=== PATIENT | female | born 1995 | race Caucasian/White ===

== ENCOUNTER 2017-10-17 15:21 | Emergency (ER) | payer OTHER ==
[2017-10-17] MEDS ORDERED: MECLIZINE HCL 25 MG TABLET PO ONE (15:51)
--- NOTE | 2017-10-17 15:57 | ER Document Report ---
ED Medical Screen (RME) - General Chief Complaint: General Weakness Stated Complaint: WEAKNESS/DIZZY Time Seen by Provider: 10/17/17 15:50 Mode of Arrival: Wheelchair Information source: Patient Notes: Pt is a 22 year old female who presents to the ER today for acute onset of dizziness like the room was spinning around her while she was at work prior to arrival. Pt admits to nausea and worsening if dizziness with turning of head and position. Denies ringing in ears. TRAVEL OUTSIDE OF THE [place] IN LAST 30 DAYS: No - Related Data Allergies/Adverse Reactions: hydromorphone HCl [From Dilaudid] Allergy (Verified 10/17/17 15:28) Past Medical History - General Information source: Patient Renal/ Medical History: Reports: Hx Kidney Stones Review of Systems - Review of Systems Gastrointestinal: See HPI Neurological/Psychological: See HPI Physical Exam - Vital signs Vitals: Temp Pulse Resp BP Pulse Ox 98.4 F 78 16 113/77 99 10/17/17 15:26 10/17/17 15:26 10/17/17 15:26 10/17/17 15:26 10/17/17 15:26 - Notes Notes: General: not wanting to move, in wheelchair, but in NAD Course - Vital Signs Vital signs: Temp Pulse Resp BP Pulse Ox 98.4 F 78 16 113/77 99 10/17/17 15:26 10/17/17 15:26 10/17/17 15:26 10/17/17 15:26 10/17/17 15:26 Doctor's Discharge - Discharge Referrals: JUAN JOSE GUEVARA DO [Primary Care Provider] - Follow up as needed
[2017-10-17 17:43] LABS: ABSOLUTE EOSINOPHILS # (AUTO) 0.1 10^3/uL (0.0-0.6); ABSOLUTE LYMPHOCYTES (AUTO) 2.7 10^3/uL (0.5-4.7); ABSOLUTE MONOCYTES (AUTO) 0.4 10^3/uL (0.1-1.4); ABSOLUTE NEUT (AUTO) 3.4 10^3/uL (1.7-8.2); BASOPHILS % (AUTO) 0.2 % (0-2); HEMATOCRIT 43.9 % (36.0-47.0); HEMOGLOBIN 14.9 g/dL (12.0-15.5); LYMPHOCYTES % (AUTO) 40.3 % (13-45); MEAN CORPUSCULAR HEMOGLOBIN 29.8 pg (27.0-33.4); MEAN CORPUSCULAR HGB CONC 33.9 g/dL (32.0-36.0); MEAN CORPUSCULAR VOLUME 88 fl (80-97); MONOCYTES % (AUTO) 6.7 % (3-13); PLATELET COUNT 256 10^3/uL (150-450); RED BLOOD COUNT 4.98 10^6/uL (3.72-5.28); RED CELL DISTRIBUTION WIDTH 12.3 % (11.5-14.0); SEGMENTED NEUTROPHILS % (AUTO) 50.8 % (42-78); TOTAL CELLS COUNTED % (AUTO) 100 %; WHITE BLOOD COUNT 6.7 10^3/uL (4.0-10.5)
[2017-10-17 17:50] LABS: APPEARANCE,URINE SLIGHTLY-CLOUDY; BILIRUBIN,URINE NEGATIVE (NEGATIVE); COLOR,URINE YELLOW; GLUCOSE, URINE NEGATIVE (NEGATIVE); KETONES,URINE NEGATIVE (NEGATIVE); LEUKOCYTE ESTERASE,URINE MODERATE (NEGATIVE); NITRITE,URINE NEGATIVE (NEGATIVE); PROTEIN,URINE NEGATIVE (NEGATIVE); URINE SPECIFIC GRAVITY 1.015; UROBILINOGEN,URINE NEGATIVE mg/dL (<2.0)
[2017-10-17 17:56] LABS: ALANINE AMINOTRANSFERASE 19 U/L (9-52); ALBUMIN 4.9 g/dL (3.5-5.0); ALKALINE PHOSPHATASE 43 U/L (38-126); ANION GAP 15 (5-19); ASPARTATE AMINO TRANSFERASE 15 U/L (14-36); BILIRUBIN,DIRECT 0.2 mg/dL (0.0-0.4); BILIRUBIN,TOTAL 0.2 mg/dL (0.2-1.3); BLOOD UREA NITROGEN 13 mg/dL (7-20); CALCIUM 9.9 mg/dL (8.4-10.2); CARBON DIOXIDE 26 mmol/L (22-30); CHLORIDE 104 mmol/L (98-107); GLUCOSE 101 mg/dL (75-110); POTASSIUM 4.5 mmol/L (3.6-5.0); SODIUM 144.6 mmol/L (137-145); TOTAL PROTEIN 7.5 g/dL (6.3-8.2)
--- NOTE | 2017-10-17 18:15 | ER Document Report ---
ED Dizziness/Weakness - General Chief Complaint: General Weakness Stated Complaint: WEAKNESS/DIZZY Time Seen by Provider: 10/17/17 15:50 Mode of Arrival: Wheelchair Information source: Patient Notes: Patient is a 22-year-old female who presents to the ER today for acute onset of dizziness, nausea that started approximately 2 hours prior to arrival while she was at work. Patient states that it feels like "the room is spinning." She has no headache or blurred vision with this, did not lose consciousness. Patient has not tried anything for her symptoms. She has not vomited. She denies any history of this. TRAVEL OUTSIDE OF THE [place] IN LAST 30 DAYS: No - Related Data Allergies/Adverse Reactions: hydromorphone HCl [From Dilaudid] Allergy (Verified 10/17/17 15:28) Past Medical History - General Information source: Patient - Social History Smoking Status: Never Smoker Chew tobacco use (# tins/day): No Frequency of alcohol use: None Drug Abuse: None Family History: Reviewed & Not Pertinent Patient has suicidal ideation: No Patient has homicidal ideation: No Renal/ Medical History: Reports: Hx Kidney Stones. Denies: Hx Peritoneal Dialysis Review of Systems - Review of Systems Constitutional: No symptoms reported EENT: No symptoms reported Cardiovascular: No symptoms reported Respiratory: No symptoms reported Gastrointestinal: No symptoms reported Genitourinary: No symptoms reported Female Genitourinary: No symptoms reported Musculoskeletal: No symptoms reported Skin: No symptoms reported Hematologic/Lymphatic: No symptoms reported Neurological/Psychological: See HPI Physical Exam - Vital signs Vitals: Temp Pulse Resp BP Pulse Ox 98.4 F 78 16 113/77 99 10/17/17 15:26 10/17/17 15:26 10/17/17 15:26 10/17/17 15:26 10/17/17 15:26 - Notes Notes: PHYSICAL EXAMINATION: GENERAL: Uncomfortable appearing, lying very still in a wheelchair, in no acute distress. HEAD: Atraumatic, normocephalic. EYES: left nystagmus, Pupils equal round and reactive to light, extraocular movements intact, sclera anicteric, conjunctiva are normal. ENT: ear canals without erythema or foreign body, TMs pearly hannah with good bony landmarks, nares patent, oropharynx clear without exudates. Moist mucous membranes. NECK: Normal range of motion, supple without lymphadenopathy LUNGS: CTAB and equal. No wheezes rales or rhonchi. HEART: Regular rate and rhythm without murmurs ABDOMEN: Soft, suprapubic tenderness. No guarding, no rebound BACK: no vertebral tenderness, normal ROM GI/: no CVA tenderness EXTREMITIES: Normal range of motion, no pitting edema. No cyanosis. NEUROLOGICAL: Cranial nerves grossly intact. Normal sensory/motor exams. PSYCH: Normal mood, normal affect. SKIN: Warm, Dry, normal turgor, no rashes or lesions noted Course - Re-evaluation Re-evalutation: 10/17/17 18:42 Lab work is unremarkable today except for some bacteria and leukocytes on urinalysis today and patient is complaining after physical exam of some suprapubic discomfort. Patient now states that she has been urinating more frequently and that has been dark in color but she denies that she has had any burning with urination or flank pain. She denies any fevers or chills. She feels better from dizziness after meclizine. 10/17/17 18:44 - Vital Signs Vital signs: Temp Pulse Resp BP Pulse Ox 98.7 F 68 18 108/69 100 10/17/17 18:23 10/17/17 18:23 10/17/17 18:23 10/17/17 18:23 10/17/17 18:23 - Laboratory Result Diagrams: 10/17/17 17:05 10/17/17 17:05 Laboratory results interpreted by me: 10/17/17 17:05 Ur Leukocyte Esterase MODERATE H Discharge - Discharge Clinical Impression: Vertigo UTI (urinary tract infection) Qualifiers: Urinary tract infection type: site unspecified Hematuria presence: without hematuria Qualified Code(s): N39.0 - Urinary tract infection, site not specified Condition: Stable Disposition: HOME, SELF-CARE Instructions: Urinary Tract Infection ([facility]) Additional Instructions: Return immediately for any new or worsening symptoms. Follow up with primary care provider, call tomorrow to make followup appointment. Prescriptions: Cephalexin Monohydrate [Keflex 500 mg Capsule] 500 mg PO BID 7 Days #14 capsule Fluticasone Propionate [Flonase Nasal Felch 50 Mcg/Felch 16 gm] 1 spray NASL Q12 #1 inhaler Meclizine HCl 25 mg PO TID #30 tablet Forms: Return to Work Referrals: JUAN JOSE GUEVARA DO [NO LOCAL MD] - Follow up as needed
[2017-10-17 18:27] VITALS: BP 108/69
== END 2017-10-17 18:27 | disposition home or self-care (01) ==
LOC: ER 15:21
DX: N39.0 Urinary tract infection, site not specified (principal); R42 Dizziness and giddiness; R53.1 Weakness; R11.0 Nausea; H55.00 Unspecified nystagmus
CPT/HCPCS: 36415; 80053; 81001; 81025; 85025; 99285

== ENCOUNTER 2017-10-19 10:57 | Emergency (ER) | payer OTHER ==
--- NOTE | 2017-10-19 12:32 | ER Document Report ---
ED General - General Chief Complaint: Dizziness Stated Complaint: DIZZINESS Time Seen by Provider: 10/19/17 11:52 Notes: The patient is a 22-year-old female who presents with feeling like the room is spinning for the past several days. She is also feeling numbness in both of her hands. She was seen in the ER 4 days ago and diagnosed with vertigo and a UTI. She is taking her meclizine and Macrobid, but feels like the meclizine is making her vertiginous symptoms worse. She is also having a mild dull frontal headache. Patient denies syncope, chest pain, shortness of breath, nausea, vomiting, ataxia, neck stiffness, fevers, focal weakness or back pain. TRAVEL OUTSIDE OF THE [place] IN LAST 30 DAYS: No - Related Data Allergies/Adverse Reactions: hydromorphone HCl [From Dilaudid] Allergy (Verified 10/17/17 15:28) Past Medical History - General Information source: Patient - Social History Smoking Status: Never Smoker Chew tobacco use (# tins/day): No Frequency of alcohol use: None Drug Abuse: None Family History: Reviewed & Not Pertinent Patient has suicidal ideation: No Patient has homicidal ideation: No Renal/ Medical History: Reports: Hx Kidney Stones. Denies: Hx Peritoneal Dialysis Review of Systems - Review of Systems Notes: REVIEW OF SYSTEMS: CONSTITUTIONAL: -fevers, -chills EENT: -eye pain, -difficulty swallowing, -nasal congestion CARDIOVASCULAR: -chest pain, -syncope. RESPIRATORY: -cough, -SOB GASTROINTESTINAL: -abdominal pain, -nausea, -vomiting, -diarrhea GENITOURINARY: -dysuria, -hematuria MUSCULOSKELETAL: -back pain, -neck pain SKIN: -rash or skin lesions. HEMATOLOGIC: -easy bruising or bleeding. LYMPHATIC: -swollen, enlarged glands. NEUROLOGICAL: -altered mental status or loss of consciousness, +headache, + numbness in B/L hands PSYCHIATRIC: -anxiety, -depression. ALL OTHER SYSTEMS REVIEWED AND NEGATIVE. Physical Exam - Vital signs Vitals: Temp Pulse Resp BP Pulse Ox 98.7 F 76 16 103/53 L 98 10/19/17 13:39 10/19/17 13:39 10/19/17 13:39 10/19/17 13:39 10/19/17 13:39 - Notes Notes: PHYSICAL EXAMINATION: GENERAL: Well-appearing, well-nourished and in no acute distress. HEAD: Atraumatic, normocephalic. EYES: Horizontal nystagmus, pupils equal round and reactive to light, extraocular movements intact, sclera anicteric, conjunctiva are normal. ENT: nares patent, oropharynx clear without exudates. Moist mucous membranes. NECK: Normal range of motion, supple without lymphadenopathy LUNGS: Breath sounds clear to auscultation bilaterally and equal. No wheezes rales or rhonchi. HEART: Regular rate and rhythm without murmurs ABDOMEN: Soft, nontender, normoactive bowel sounds. No guarding, no rebound. No masses appreciated. EXTREMITIES: Normal range of motion, no pitting or edema. No cyanosis. NEUROLOGICAL: Cranial nerves grossly intact. Normal speech. 5/5 strength in all 4 extremities. Numbness in B/L palms and fingers. PSYCH: Normal mood, normal affect. SKIN: Warm, Dry, normal turgor, no rashes or lesions noted. Course - Re-evaluation Re-evalutation: Patient appears well. Head CT performed due to headache and neurologic findings , but no evidence of CVA or head bleed seen. She has no signs of meningitis at this time. Symptoms are consistent with peripheral vertigo. Due to her age and incongruent neurologic symptoms, will refer patient to neurologist for further evaluation and workup of possible MS. Also provided patient instructions about Nayeli maneuvers to do at home for vertiginous symptoms. - Vital Signs Vital signs: Temp Pulse Resp BP Pulse Ox 98.7 F 76 16 103/53 L 98 10/19/17 13:39 10/19/17 13:39 10/19/17 13:39 10/19/17 13:39 10/19/17 13:39 - Diagnostic Test Radiology reviewed: Image reviewed, Reports reviewed Radiology results interpreted by me: Head CT: NAD Discharge - Discharge Clinical Impression: Vertiginous syndrome, Bilateral hand numbness Condition: Stable Disposition: HOME, SELF-CARE Additional Instructions: He should follow-up with your primary care physician and neurologist for further evaluation treatment. Your head CT scan was normal today. Vertigo You have experienced an episode of vertigo -- a whirling dizziness which may be accompanied by nausea and vomiting or staggering. Vertigo is often caused by an irritation of the inner ear, in which case it is called labyrinthitis. It can also be a symptom of a degenerating inner ear, nerve damage, or brain injury. Your physician has evaluated you to determine whether any further testing is necessary. Vertigo is often treated with dramamine or meclizine. These medications are helpful, but stronger medication may be needed if you are vomiting. Rest in bed. You should not drive or operate machinery until completely better. It may take one to three weeks for recovery. If there are new symptoms, such as decreased hearing or vision, severe headache, weakness or faintness, or confusion, call the physician. Referrals: FRANK MACIEL MD [Primary Care Provider] - Follow up as needed BG BRASWELL MD [NO LOCAL MD] - Follow up as needed
--- NOTE | 2017-10-19 13:05 | RADIOLOGY REPORT (SQ) ---
EXAM DESCRIPTION: CT HEAD WITHOUT COMPLETED DATE/TIME: 10/19/2017 12:50 pm REASON FOR STUDY: new headache, extremitity tingling COMPARISON: None. TECHNIQUE: Axial images acquired through the brain without intravenous contrast. Images reviewed wi th bone, brain and subdural windows. Additional sagittal and coronal reconstructions were generated. Images stored on PACS. All CT scanners at this facility use dose modulation, iterative reconstruction, and/or weight based d osing when appropriate to reduce radiation dose to as low as reasonably achievable (ALARA). [facility]: Dose Right [facility]: CareDose [facility]: Dose Right [facility]: Teradose 4D [facility]: [employer] Systems RADIATION DOSE: CT Rad equipment meets quality standard of care and radiation dose reduction techniq ues were employed. CTDIvol: 53.2 mGy. DLP: 1017 mGy-cm. mGy. LIMITATIONS: None. FINDINGS: VENTRICLES: Normal size and contour. CEREBRUM: No masses. No hemorrhage. No midline shift. No evidence for acute infarction. Normal gra y/white matter differentiation. No areas of low density in the white matter. CEREBELLUM: No masses. No hemorrhage. No alteration of density. No evidence for acute infarction. EXTRAAXIAL SPACES: No fluid collections. No masses. ORBITS AND GLOBE: No intra- or extraconal masses. Normal contour of globe without masses. CALVARIUM: No fracture. PARANASAL SINUSES: No fluid or mucosal thickening. SOFT TISSUES: No mass or hematoma. OTHER: No other significant finding. IMPRESSION: NORMAL BRAIN CT WITHOUT CONTRAST. EVIDENCE OF ACUTE STROKE: NO. COMMENT: Quality ID # [id number]: Final reports with documentation of one or more dose reduction techniques (e.g., Automated exposure control, adjustment of the mA and/or kV according to patient size, use of iterative reconstruction technique) TECHNICAL DOCUMENTATION: JOB ID: [id number] [employer]- All Rights Reserved Reading location - IP/workstation name: [email or web address]
[2017-10-19 13:41] VITALS: BP 103/53
== END 2017-10-19 13:40 | disposition home or self-care (01) ==
LOC: ER 10:57
DX: R42 Dizziness and giddiness (principal); R20.0 Anesthesia of skin; R51 Headache; N39.0 Urinary tract infection, site not specified; Z88.5 Allergy status to narcotic agent
CPT/HCPCS: 70450; 99284